=== PATIENT | female | born 1970 | race Two or more races ===

== ENCOUNTER 2017-08-12 18:55 | Emergency (ER) | payer OTHER ==
[2017-08-12 20:18] LABS: ADD MAN DIFF? NO
[2017-08-12 20:20] LABS: BASO % 0 % (0-3); EOS % 0 % (0-3); HEMATOCRIT 39.3 % (36.0-47.0); HEMOGLOBIN 13.3 g/dL (12.0-15.5); LYMPH # 1.6 x10^3/uL (1.0-4.8); LYMPH % 19 % (24-48); MEAN CORPUSCULAR HEMOGLOBIN 28 pg (25-35); MEAN CORPUSCULAR HGB CONC 34 g/dL (31-37); MEAN CORPUSCULAR VOLUME 83 fL (79-100); MONO # 0.8 x10^3/uL (0.0-1.1); MONO % 9 % (0-9); NEUT # 6.2 x10^3uL (1.8-7.7); NEUT % 72 % (31-73); PLATELET COUNT 320 x10^3/uL (140-400); RED BLOOD COUNT 4.75 x10^6/uL (3.50-5.40); RED CELL DISTRIBUTION WIDTH 13.2 % (11.5-14.5); WHITE BLOOD COUNT 8.7 x10^3/uL (4.0-11.0)
[2017-08-12] MEDS: LIDO:MAALOX 1:1 20 ML SINGLE DOSE. PO (20:25)
[2017-08-12 20:30] LABS: ANION GAP 7 (6-14); BLOOD UREA NITROGEN 7 mg/dL (7-20); BUN/CREATININE RATIO 12 (6-20); CALCIUM 9.2 mg/dL (8.5-10.1); CARBON DIOXIDE 27 mmol/L (21-32); CHLORIDE 106 mmol/L (98-107); CREATININE 0.6 mg/dL (0.6-1.0); GFR 107.6; GLUCOSE 93 mg/dL (70-99); POTASSIUM 4.1 mmol/L (3.5-5.1); SODIUM 140 mmol/L (136-145)
[2017-08-12 20:36] LABS: ALBUMIN/GLOBULIN RATIO 1.2 (1.0-1.7); ALK PHOS 65 U/L (46-116); ALT (SGPT) 27 U/L (14-59); AST (SGOT) 17 U/L (15-37); LIPASE 155 U/L (73-393); TOTAL BILIRUBIN 0.2 mg/dL (0.2-1.0); TOTAL PROTEIN 7.3 g/dL (6.4-8.2)
[2017-08-12 20:39] LABS: TROPONINI < 0.017 ng/mL (0.000-0.055)
== END 2017-08-12 22:35 | disposition home or self-care (01) ==
LOC: ER 18:55
DX: K29.70 Gastritis, unspecified, without bleeding (principal); K21.9 Gastro-esophageal reflux disease without esophagitis
CPT/HCPCS: 36415; 80053; 83690; 84484; 85025; 93005; 99285

== ENCOUNTER 2017-09-28 16:19 | Emergency (ER) | payer OTHER ==
[2017-09-28] MEDS: HYDROcodone/APAP 5/325MG 1 TAB TABLET PO (17:17)
[2017-09-28] MEDS: CYCLOBENZAPRINE 10 MG TABLET. PO (17:18)
[2017-09-28] MEDS: NAPROXEN 500 MG TABLET PO (17:18)
== END 2017-09-28 17:39 | disposition home or self-care (01) ==
LOC: ER 17:39
DX: H65.192 Other acute nonsuppurative otitis media, left ear (principal); H60.392 Other infective otitis externa, left ear; R51 Headache; K21.9 Gastro-esophageal reflux disease without esophagitis
CPT/HCPCS: 99284